=== PATIENT | male | born 1955 | race Caucasian/White ===

== ENCOUNTER → 2019-02-23 | Day surgery (SDC) | payer MEDICARE ==
[2019-02-20 16:00] LABS: BASOPHILS % 0.4 % (0.0-1.0); EOSINOPHILS # (AUTO) 0.3 (0.0-0.4); EOSINOPHILS % 3.7 % (0.0-6.0); HEMATOCRIT 41.3 % (38.2-49.6); HEMOGLOBIN 14.4 g/dL (14.0-18.0); LYMPHOCYTES # (AUTO) 2.2 (1.0-3.2); LYMPHOCYTES % 30.8 % (18.0-39.1); MEAN CORPUSCULAR HEMOGLOBIN 31.4 pg (28-32); MEAN CORPUSCULAR HGB CONC 34.9 g/dL (31-35); MONOCYTES # (AUTO) 0.7 (0.2-0.8); MONOCYTES % 9.4 % (4.4-11.3); NEUTROPHILS # (AUTO) 3.9 (2.1-6.9); NEUTROPHILS % 55.4 % (38.7-80.0); PLATELET COUNT 239 x10e3/uL (140-360); RED BLOOD COUNT 4.59 x10e6/uL (4.3-5.7); RED CELL DISTRIBUTION WIDTH 13.6 % (11.7-14.4)
[2019-02-20 16:14] LABS: ANION GAP 11.7 mmol/L (8-16); BLOOD UREA NITROGEN 24 mg/dL (7-26); BUN/CREATININE RATIO 29 (6-25); CARBON DIOXIDE 26 mmol/L (22-29); CHLORIDE 102 mmol/L (98-107); CREATININE, SERUM 0.83 mg/dL (0.72-1.25); EST GLOMERULAR FILTRATION RATE > 60 ML/MIN (60-); GLUCOSE 97 mg/dL (74-118); POTASSIUM 3.7 mmol/L (3.5-5.1); SODIUM 136 mmol/L (136-145)
--- NOTE | 2019-02-20 16:37 | Diagnostic Imaging Report ---
EXAMINATION: CHEST 2 VIEWS INDICATION: Pre-op. COMPARISON: None FINDINGS: TUBES and LINES: None. LUNGS: Lungs are moderately inflated. There is no evidence of pneumonia or pulmonary edema. PLEURA: No pleural effusion or pneumothorax. HEART AND MEDIASTINUM: The cardiomediastinal silhouette is unremarkable. There are atherosclerotic calcifications within the aorta. BONES AND SOFT TISSUES: No acute osseous abnormality. UPPER ABDOMEN: No free air under the diaphragm. IMPRESSION: No acute radiographic abnormality. Signed by: Dr. Tamia Sanchez MD on 02/20/2019 4:33 PM
[~2019-02-23] MED LIST: ACETAMINOPHEN 1000 MG/100 ML 100 ML IV ONE; BUPIVACAINE HCL 0.5% 10ML MPF VIAL INJ ONE; CEFAZOLIN SOD 2 GM/D5W 50ML 50 ML IV ONE; DEXAMETHASONE SOD PHOS INJ 4 MG/ML VIAL ONE; EPHEDRINE SULFATE INJ 50 MG/10 ML SYR ONE; FENTANYL CITRATE/PF 100MCG/2 ML INJ ONE; KETOROLAC TROMETHAMINE 30 MG/ML VIAL ONE; LIDOCAINE HCL 2% LOCAL INJ 5 ML SDV VIAL INJ ONE; LISINOPRIL-HCT1 EAC1 PO; LISINOPRIL10 MG PO; MEPERIDINE HCL INJ 25 MG/ML VIAL ONE; MIDAZOLAM HCL 2 MG/2 ML VIAL ONE; MUPIROCIN 2% OINT 22 GM TUBE ONE; NIACIN100 MG PO; ONDANSETRON HCL INJ 2MG/ML 2ML 2 MG/ML VIAL ONE; PROAIR HFA INH8.5 GM INH; PROPOFOL IV EMULSION 10 MG/ML 20 ML VIAL ONE; SEVOFLURANE INHAL SOLN 250 ML PEN BTL ONE; cholesterol PO
--- OUTSIDE RECORDS SUMMARY | 2019-02-23 06:20 | XMS REPORT ---
[facility] Address Unknown Phone Unavailable Care Team Providers Care Stem Assembler Name Role Phone ZACHARY NORIEGA Unavailable Unavailable Payers Payer Name Policy Type Policy Number Effective Date Expiration Date Problems This patient has no known problems. Allergies, Adverse Reactions, Alerts Allergy Name Allergy Type Status Severity Reaction(s) Onset Date Inactive Date Treating Clinician Comments ibuprofen DA Active MO 2018-12-20 00:00:00 ibuprofen DA Active MO 2015-07-05 00:00:00 Medications This patient has no known medications. Results Test Description Test Time Test Comments Text Results Atomic Results Result Comments CHEST 2 VIEWS 2019-02-20 16:32:00 [place] [address] Patient Name: THIEN MORGAN MR #: [id number] : 1955 Age/Sex: 63/M Req #: [id number] Adm Physician: Ordered by: ZACHARY NORIEGA DPM Report #: [id number] Location: OR Room/Bed: Procedure: [id number] DX/CHEST 2 VIEWS Exam Date: 02/20/19 Exam Time: 1600 REPORT STATUS: Signed EXAMINATION: CHEST 2 VIEWS INDICATION: Pre-op. COMPARISON: None FINDINGS: TUBES and LINES: None. LUNGS: Lungs are moderately inflated. There is no evidence of pneumonia or pulmonary edema. PLEURA: No pleural effusion or pneumothorax. HEART AND MEDIASTINUM: The cardiomediastinal silhouette is unremarkable. There are atherosclerotic calcifications within the aorta. BONES AND SOFT TISSUES: No acute osseous abnormality. UPPER ABDOMEN: No free air under the diaphragm. IMPRESSION: No acute radiographic abnormality. Signed by: Dr. Quinton Walker MD on 02/20/2019 4:33 PM Dictated By: UQINTON WAKLER MD [id number] Transcribed By: VIVEK on 02/20/19 1633 COPY TO: ZACHARY NORIEGA DPM COMPREHENSIVE METABOLIC PANEL 2018-12-20 10:43:00 SODIUM (test code=NA) 137 mmol/L 136-145 POTASSIUM (test code=K) 3.7 mmol/L 3.5-5.1 CHLORIDE (test code=CL) 103.0 mmol/L 98-107 CARBON DIOXIDE (test code=CO2) 28.0 mmol/L 21-32 ANION GAP (test code=GAP) 9.7 10-20 GLUCOSE (test code=GLU) 150 mg/dL 74-106 BLOOD UREA NITROGEN (test code=BUN) 25 mg/dL 7-18 GLOMERULAR FILTRATION RATE (test code=GFR) > 60 mL/min >=60 Estimated GFR by using Modified MDRD formula.Chronic kidney disease is defined as either kidney damageor GFR <60 mL/min/1.73 m2 for >3 months. CREATININE (test code=CREAT) 0.90 mg/dL 0.7-1.3 BUN/CREATININE RATIO (test code=BUN/CREA) 27.8 10-20 TOTAL PROTEIN (test code=PROT) 7.9 gram/dL 6.4-8.2 ALBUMIN (test code=ALB) 4.0 g/dL 3.4-5.0 GLOBULIN (test code=GLOB) 3.9 gram/dL 2.7-4.2 ALBUMIN/GLOBULIN RATIO (test code=A/G) 1.0 0.75-1.50 CALCIUM (test code=CA) 9.2 mg/dL 8.5-10.1 BILIRUBIN TOTAL (test code=BILT) 0.40 mg/dL 0.0-1.0 SGOT/AST (test code=AST) 35 IUnit/L 15-37 SGPT/ALT (test code=ALT) 70 IUnit/L 12-78 ALKALINE PHOSPHATASE TOTAL (test code=ALKP) 73 IUnit/L 45-117 Note change in reference range due to change in reagent. CBC W/AUTO [id number] 10:37:00* Test Item Value Reference Range Comments WHITE BLOOD CELL (test code=WBC) 4.1 K/mm3 4.5-12.5 RED BLOOD CELL (test code=RBC) 4.82 mill/mm3 4.0-5.8 HEMOGLOBIN (test code=HGB) 14.7 gram/dL 13.0-17.5 HEMATOCRIT (test code=HCT) 43.8 % 42.0-52.0 MEAN CELL VOLUME (test code=MCV) 90.9 fL 80-98 MEAN CELL HGB (test code=MCH) 30.5 picogram 27.0-33.0 MEAN CELL HGB CONCETRATION (test code=MCHC) 33.6 gram/dL 33.0-36.0 RED CELL DISTRIBUTION WIDTH (test code=RDW) 13.5 % 11.6-16.2 RED CELL DISTRIBUTION WIDTH SD (test code=RDW-SD) 45.6 fL 37.0-51.0 PLATELET COUNT (test code=PLT) 230 K/mm3 150-450 MEAN PLATELET VOLUME (test code=MPV) 10.9 fL 6.7-11.0 NEUTROPHIL % (test code=NT%) 46.5 % 39.0-69.0 IMMATURE GRANULOCYTE % (test code=IG%) 0.2 % 0.0-5.0 LYMPHOCYTE % (test code=LY%) 32.6 % 25.0-55.0 MONOCYTE % (test code=MO%) 14.8 % 0.0-10.0 EOSINOPHIL % (test code=EO%) 5.2 % 0.0-5.0 BASOPHIL % (test code=BA%) 0.7 % 0.0-1.0 NUCLEATED RBC % (test code=NRBC%) 0.0 % 0-0 NEUTROPHIL # (test code=NT#) 1.88 K/mm3 1.8-7.7 IMMATURE GRANULOCYTE # (test code=IG#) 0.01 x10 3/uL 0-0.03 LYMPHOCYTE # (test code=LY#) 1.32 K/mm3 1.0-5.0 MONOCYTE # (test code=MO#) 0.60 K/mm3 0-0.8 EOSINOPHIL # (test code=EO#) 0.21 K/mm3 0.0-0.5 BASOPHIL # (test code=BA#) 0.03 K/mm3 0.0-0.2 NUCLEATED RBC # (test code=NRBC#) 0.00 K/mm3 0.0-0.1 MANUAL DIFF REQUIRED (test code=MDIFF) NO - XR CHEST 2 [id number] 09:15:00 FAX: Harris Sofia DO [phone] [place]: St: [facility] FAX: Rubina Yañez MD [phone] Name: THIEN MORGAN [facility] : 1955 Age/S: 63/M [address] [facility] Unit #: [id number] Loc: [place] [address] Phys: Rubina Yañez MD Acct: [id number] Dis Date: Status: REG ER PHONE #: [phone] Exam Date: 12/20/2018 0908 FAX #: [phone] Reason: SOB, COUGH EXAMS: CPT CODE: [id number] XR CHEST 2 V [id number] HISTORY: Shortness of breath and cough. COMPARISON: None available. AP and lateral view of the chest: No acute infiltrates, effusion or congestion. Suboptimal inspiration. Dependent changes. Cardiac and the mediastinal silhouette are normal. IMPRESSION: No acute infiltrates, effusion or congestion. at 0915 Reported and signed by: Fazal Mccracken M.D. CC: Harris Jones; Rubina Yañez MD Technologist: RT ROGER(Yaya) Trnscrd Date/Time/By: 0 12/20/2018 (0915) : By: [email or web address] Orig Print D/T: S: 12/20/2018 (0918) PAGE 1 Signed Report
[2019-02-23 12:00] VITALS: BP 130/80
--- NOTE | 2019-02-23 12:54 | Operative Report ---
DATE OF PROCEDURE: 02/23/2019 SURGEON: Lavelle Carpenter DPM PREOPERATIVE DIAGNOSIS: Hallux abductovalgus deformity of the left foot with significant degenerative joint disease. POSTOPERATIVE DIAGNOSIS: Hallux abductovalgus deformity of the left foot with significant degenerative joint disease. TITLE OF OPERATION: Modified Carroll bunionectomy of the left foot with dorsal cheilectomy and subchondral drilling of the 1st met head. PROCEDURE IN DETAIL: The patient was taken to the operating room in a mildly sedated state and placed upon the operating table in supine position. Following induction of general anesthetic, the left lower extremity was elevated to 60 degrees to exsanguinate before inflating the pneumatic thigh tourniquet to 350 mmHg to create good hemostasis. The left lower extremity was placed upon the operating room table prior to performing the following procedure. Procedure #1 is Modified Carroll bunionectomy of the left foot. An approximate 6 cm dorsal linear incision made along the dorsal medial aspect of the 1st metatarsophalangeal joint of the left foot. This incision was deepened via sharp and blunt dissection down to the level of dorsal capsular structure. Care was taken to identify and retract all vital structures encountered. The head of the 1st metatarsal was delivered in the surgical site and remodeling of the dorsal and medial eminence was performed. It was noted that the base of the proximal phalanx also had significant hypertrophic bone, there were several bone spurs and loose bodies within the joint itself owing to severity of the DJD. A rongeur was used to remove the prominent cyst from the base of proximal phalanx, that area was all irrigated with copious amounts of sterile saline solution. A rotary bur was used to smooth the entire dorsal, medial, lateral surface of the 1st metatarsophalangeal joint. It was noted that there was an approximate 80% collagenous loss of the distal bone, subchondral drilling was performed to create a fibrocartilage covering. Human tissue allograft was injected into the area to facilitate adequate healing. After irrigation with copious amounts of sterile saline solution and closure with combination of 3-0 Vicryl, 4-0 Vicryl, and 4-0 nylon. The areas of surgery were all blocked with 0.5 Marcaine and Decadron LA. Released the pneumatic thigh tourniquet showed a normal hyperemic flush to all digits of the left foot. The patient left the operating room with vital signs stable in apparent satisfactory condition having tolerated the anesthetic and procedure very well. ALEXEI Sanches/LUAN /[id number]
== END | disposition home or self-care (01) ==
LOC: OR 06:09
PROVIDERS: ATTEND Podiatrist Foot Surgery
DX: M20.12 Hallux valgus (acquired), left foot (principal); M19.072 Primary osteoarthritis, left ankle and foot; M24.075 Loose body in left toe joint(s); I10 Essential (primary) hypertension; E78.00 Pure hypercholesterolemia, unspecified; E66.9 Obesity, unspecified; Z88.6 Allergy status to analgesic agent; Z88.8 Allergy status to other drugs, medicaments and biological substances; Z01.810 Encounter for preprocedural cardiovascular examination; Z01.812 Encounter for preprocedural laboratory examination; Z01.818 Encounter for other preprocedural examination
CPT/HCPCS: 36415; 71046; 76000; 80048; 85025; 93005; C1713; J0690; J1100; J1885; J2001; J2175; J2250; J2405; Q4100

== ENCOUNTER → 2020-05-30 | Day surgery (SDC) | payer MEDICARE, OTHER ==
[2020-05-26 10:59] LABS: BASOPHILS % 0.6 % (0.0-1.0); EOSINOPHILS # (AUTO) 0.2 (0.0-0.4); EOSINOPHILS % 3.7 % (0.0-6.0); HEMATOCRIT 41.8 % (38.2-49.6); HEMOGLOBIN 13.9 g/dL (14.0-18.0); LYMPHOCYTES # (AUTO) 2.1 (1.0-3.2); LYMPHOCYTES % 39.4 % (18.0-39.1); MEAN CORPUSCULAR HEMOGLOBIN 29.9 pg (28-32); MEAN CORPUSCULAR HGB CONC 33.3 g/dL (31-35); MEAN CORPUSCULAR VOLUME 89.9 fL (81-99); MONOCYTES # (AUTO) 0.5 (0.2-0.8); MONOCYTES % 9.4 % (4.4-11.3); NEUTROPHILS # (AUTO) 2.4 (2.1-6.9); NEUTROPHILS % 46.7 % (38.7-80.0); PLATELET COUNT 199 x10e3/uL (140-360); RED BLOOD COUNT 4.65 x10e6/uL (4.3-5.7); RED CELL DISTRIBUTION WIDTH 13.7 % (11.7-14.4)
[2020-05-26 11:26] LABS: ANION GAP 16.1 mmol/L (8-16); BLOOD UREA NITROGEN 18 mg/dL (7-26); BUN/CREATININE RATIO 21 (6-25); CALCIUM 9.3 mg/dL (8.4-10.2); CARBON DIOXIDE 25 mmol/L (22-29); CHLORIDE 102 mmol/L (98-107); CREATININE, SERUM 0.86 mg/dL (0.72-1.25); EST GLOMERULAR FILTRATION RATE > 60 ML/MIN (60-); GLUCOSE 131 mg/dL (74-118); POTASSIUM 4.1 mmol/L (3.5-5.1); SODIUM 139 mmol/L (136-145)
--- NOTE | 2020-05-26 11:58 | Diagnostic Imaging Report ---
Exam: CHEST 2 VIEWS Date: 05/26/2020 11:53 AM INDICATION: ^[id number] ^1122 ^PRE-OP Comparison: 02/20/2019 FINDINGS: Lines/Tubes:None Lungs:The lungs are well inflated. No focal consolidation or pulmonary edema. Pleura:No pleural effusion. No pneumothorax. Heart/Mediastinum:The cardiomediastinal silhouette is normal in size and contour. Bones/Soft Tissues: No acute osseous abnormality. Stable moderate to severe multilevel degenerative changes of the spine. Stable slight right convex curvature of the thoracic spine. Upper abdomen: Unremarkable. IMPRESSION: Negative for acute intrathoracic process. Signed by: Jose Elias Horta MD on 05/26/2020 11:55 AM
[~2020-05-30] MED LIST changes: -ACETAMINOPHEN 1000 MG/100 ML 100 ML IV ONE; +ALBUTEROL0.63 MG/3 INH; +BENICAR20 MG PO; -BUPIVACAINE HCL 0.5% 10ML MPF VIAL INJ ONE; +BUPIVACAINE HCL 0.5% INJ 30 ML VIAL INJ ONE; +CEFAZOLIN SOD 1 GM/NS 50ML 100 ML IV ONE; -CEFAZOLIN SOD 2 GM/D5W 50ML 50 ML IV ONE; +CRESTOR10 MG PO; -EPHEDRINE SULFATE INJ 50 MG/10 ML SYR ONE; +FAMOTIDINE40 MG PO; +HYDROCHLOROTHIA25 MG PO; -MEPERIDINE HCL INJ 25 MG/ML VIAL ONE; -MIDAZOLAM HCL 2 MG/2 ML VIAL ONE; -MUPIROCIN 2% OINT 22 GM TUBE ONE; +NEOSTIGMINE 1 MG/ML 10ML VIAL ONE; +PROTONIX20 MG PO
[2020-05-30 09:45] VITALS: BP 131/86
--- NOTE | 2020-06-06 10:40 | Operative Report ---
DATE OF PROCEDURE: 05/30/2020 SURGEON: Lavelle Carpenter DPM ROOM NUMBER: [facility] PREOPERATIVE DIAGNOSES: Hallux abductovalgus deformity of the left foot with severe degenerative joint disease, left foot. POSTOPERATIVE DIAGNOSES: Hallux abductovalgus deformity of the left foot with severe degenerative joint disease, left foot. TITLE OF THE OPERATIONS: Modified García bunionectomy of the left foot. ANESTHESIA: General endotracheal. HEMOSTASIS: A left thigh tourniquet 350 mmHg to create hemostasis. PROCEDURE IN DETAIL: The patient was taken to the operating room in a mildly sedated state and placed on the operating table in supine position. Following induction of general anesthetic, the left lower extremity was elevated to 60 degrees to exsanguinate for inflating the pneumatic thigh tourniquet to 350 mmHg. The foot having been prepped and draped in the usual aseptic manner and was placed on the operating table prior to performing following procedure. García bunionectomy: A linear longitudinal incision was made overlying the dorsal medial aspect of first metatarsophalangeal joint of the left foot. Incision was deepened via sharp and blunt dissection on the level of dorsal capsular structure. Care was taken to identify and retract all vital structures encountered. Head of the proximal phalanx was delivered the surgical site and it was noted that there was a significant amount of degenerative joint disease as well as soft tissue contracture surrounding the joint. The base of the proximal phalanx was remodeled with removal of all devitalized cartilage in a García type procedure. Care was taken to remove only the bone leaving all possible attachments in place. The area was irrigated with copious amounts of sterile saline solution. The underlying tissues were noted to be in excellent condition. After releasing the contractures, it was noted that the extensor tendons were in adequate positioning. However, there was a tendency for the hallux to contract dorsally and laterally. A 0.062 K-wire was installed in retrograde technique through the hallux and into the first met head to allow for appropriate healing during the postoperative period. After copious irrigation, deep closure with 3-0 Vicryl, subcutaneous closure with 4-0 Vicryl, and skin closure with 4-0 nylon. The areas of surgery were then blocked with 0.5 Marcaine and Decadron LA, released the pneumatic thigh tourniquet, showed a normal hyperemic flush to all digits of the left foot. The patient left the operating room, vital signs stable in apparent satisfactory condition. The patient tolerated both the anesthetic and procedure very well. ALEXEI Sanches/LUAN /[id number]
== END | disposition home or self-care (01) ==
LOC: OR 05:00
PROVIDERS: ATTEND Podiatrist Foot Surgery
DX: M20.12 Hallux valgus (acquired), left foot (principal); M19.072 Primary osteoarthritis, left ankle and foot; I10 Essential (primary) hypertension; J45.909 Unspecified asthma, uncomplicated; Z01.810 Encounter for preprocedural cardiovascular examination; Z01.812 Encounter for preprocedural laboratory examination; Z01.818 Encounter for other preprocedural examination; Z11.59 Encounter for screening for other viral diseases
CPT/HCPCS: 28292; 36415; 71046; 80048; 85025; 93005; C1713; J0690; J1100; J1885; J2001; J2405; J2704; J2710; J3010; U0002; 76000